=== PATIENT | male | born 1960 | race African-American/Black ===

== ENCOUNTER 2019-04-06 13:15 | Emergency (ER) | payer OTHER ==
[~2019-04-06] VITALS: Ht 172.7 cm; Wt 99.8 kg
[~2019-04-06 13:15] MED LIST: HYDR-4384 PO; IBUP-1953 PO
[2019-04-06 14:12] VITALS: BP 153/100
== END 2019-04-06 14:55 | disposition home or self-care (01) ==
LOC: ER 13:15
DX: H60.11 Cellulitis of right external ear (principal); F17.200 Nicotine dependence, unspecified, uncomplicated; Z60.2 Problems related to living alone

== ENCOUNTER 2023-11-20 13:21 | Emergency (ER) | payer OTHER ==
[~2023-11-20] VITALS: Ht 172.7 cm; Wt 96.6 kg
[2023-11-20 13:54] VITALS: BP 185/100; TEMP 98.1
[2023-11-20] MEDS ORDERED: KETOROLAC TROMETHAMINE 15 MG/ML VIAL ONE (14:23)
[2023-11-20] MEDS ORDERED: KETOROLAC TROMETHAMINE 15 MG/ML VIAL IM ONE (14:30)
[2023-11-20] MEDS ORDERED: LIDO30AD10 TP (14:41)
[2023-11-20] MEDS ORDERED: HYDR-4303 PO (14:41)
[2023-11-20] MEDS ORDERED: METH4TAB17 PO (14:41)
[2023-11-20] MEDS ORDERED: CYCL5TAB PO (14:41)
[2023-11-20 14:55] VITALS: O2SAT 99
== END 2023-11-20 14:56 | disposition home or self-care (01) ==
LOC: ER 13:28
DX: M54.41 Lumbago with sciatica, right side (principal); M79.604 Pain in right leg; F17.210 Nicotine dependence, cigarettes, uncomplicated; Z79.899 Other long term (current) drug therapy; Z60.2 Problems related to living alone
CPT/HCPCS: 99283; 99406; 96372; J1885